=== PATIENT | male | born 1985 | race Asian ===

== ENCOUNTER 2024-10-19 10:38 | Emergency (ER) | payer BC ==
[~2024-10-19] VITALS: Ht 177.8 cm; Wt 70.3 kg
[2024-10-19 10:57] VITALS: BP 133/79; TEMP 99.7
[2024-10-19 11:25] VITALS: O2SAT 99
== END 2024-10-19 11:25 | disposition home or self-care (01) ==
LOC: ER 10:41
DX: B97.89 Other viral agents as the cause of diseases classified elsewhere (principal); J02.8 Acute pharyngitis due to other specified organisms; R05.9 Cough, unspecified; R09.81 Nasal congestion

== ENCOUNTER 2025-03-10 13:15 | Emergency (ER) | payer BC, OTHER ==
[~2025-03-10] VITALS: Ht 177.8 cm; Wt 70.3 kg
[2025-03-10 13:24] VITALS: BP 152/91; TEMP 98.1
[2025-03-10] MEDS ORDERED: FLUO20CA36 PO (13:29)
[2025-03-10 13:34] VITALS: O2SAT 99
== END 2025-03-10 13:34 | disposition home or self-care (01) ==
LOC: ER 13:32
DX: Z76.0 Encounter for issue of repeat prescription (principal); Z79.899 Other long term (current) drug therapy

== ENCOUNTER 2025-06-01 10:23 | Emergency (ER) | payer BC, OTHER ==
[~2025-06-01] VITALS: Ht 177.8 cm; Wt 70.3 kg
[~2025-06-01 10:23] MED LIST: FLUO20CA36 PO
[2025-06-01 14:10] VITALS: BP 136/84; TEMP 97.7; O2SAT 99
== END 2025-06-01 14:11 | disposition home or self-care (01) ==
LOC: ER 10:23
DX: R91.1 Solitary pulmonary nodule (principal); Z79.899 Other long term (current) drug therapy
CPT/HCPCS: 36415; 71250-TC